=== PATIENT | male | born 1970 | race Caucasian/White ===

== ENCOUNTER 2017-03-14 16:36 | Observation (INO) ==
[2017-03-14] MEDS ORDERED: Naloxone 0.4 MG/ML INJ IVP PRN (22:27)
--- NOTE | 2017-03-14 22:33 | Internal Med History&Physical ---
Date of Encounter: 03/14/17 Time of Encounter: 22:31 Assessment and Plan (1) Chest pain Current visit: Yes Status: Acute trend trop tele TTE nitropaste Qualifiers: Chest pain type: precordial pain Qualified Code(s): R07.2 - Precordial pain (2) RUE weakness Current visit: Yes Status: Acute check MRI brain add ASA on pravastatin at home (3) HTN (hypertension) Current visit: Yes Status: Acute continue ACEI Qualifiers: Hypertension type: essential hypertension Qualified Code(s): I10 - Essential (primary) hypertension (4) HLD (hyperlipidemia) Current visit: Yes Status: Acute statin Qualifiers: Qualified Code(s): E78.5 - Hyperlipidemia, unspecified Internal Medicine - H&P: HPI Chief complaint: Chest pain and RUE numbness/decrease power History of present illness: Mr. Stout is a 46 year old male who presents with Chest pain and RUE numbness/ decrease power. Admitted to r/o CVA and cardiac CP. Hx of HTN, depression, HLD, COPD. Woke up at 3 a.m in the morning with SOB related to CP sternal. When he got up from bed, he felt dizzy. [place] that his heart was racing. 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 Took nitro which helped with the pain and he went back to bed. He woke up later at 930 a.m with worsening symptoms prompting visit to [facility] ED where CT head w/o contrast, CTA head, CTA chest was all without acute findings. On interview, he still has numbness in right arm with some mild decrease strength - there is still deficit but this is improving He smokes 1 ppd Denies CVA or MA in family hx EKG personally reviewed with rate 89, mild repolarization changes with J point changes Past Med Surg Social Fam HX - Past Medical History Medical history: arthritis, asthma, COPD, GERD, hyperlipidemia, hypertension, myocardial infarction Psychiatric history: anxiety, bipolar - Past Surgical History Surgical History: herniorrhaphy, vasectomy - Social History Smoking Status: Light tobacco smoker Packs per day: 1 Smokeless Tobacco Status: No Alcohol use: recent Drug use: none - Family History Mother Living Status: Still Living Hx Family Cardiac Disorders: No Hx Family Respiratory Disorders: No Hx Family Cancer: No Hx Family GI Disorders: No Hx Family Genitourinary Disorders: No Hx Family Endocrine Disorder: No Hx Family Musculoskeletal Disorders: No Hx Family Neuromuscular Disorders: No Hx Family Neurologic Disorders: No Hx Family HEENT Disorders: No Hx Family Autoimmune Disorders: No Hx Family Reproductive Disorders: No Hx Family Psychosocial Disorders: No Hx Family Medical Disorders: No Internal Medicine - H&P: Meds 3 Allergy/AdvReac Type Severity Reaction Status Date / Time brompheniramine Allergy Itching Verified 03/14/17 19:52 [From Dimetapp Cold-Allergy (PE)] phenylephrine Allergy Itching Verified 03/14/17 19:52 [From Dimetapp Cold-Allergy (PE)] All Systems PM: A 10-system review of systems was performed and is negative for pertinent findings except as documented above in the HPI. Review of systems: ROS 14 point review of systems reviewed as best as possible given presentation. Pertinent positive or negative as per HPI or otherwise reviewed as negative - Constitutional Vitals: Temp Pulse Resp BP Pulse Ox 97.4 F L 59 16 143/88 95 03/14/17 18:43 03/14/17 18:43 03/14/17 18:43 03/14/17 18:43 03/14/17 19:45 Exam: General - AAO x 3 Psych - Appropriate affect/speech. No agitation Eyes - RUDDY. Eye lids intact. No scleral icterus Neuro -No CN deficits. RUE with paresthesia and power 4/5 compared to other extremities 5/5 Heart - Sinus. RRR. S1 and S2 present. No added HS/murmurs appreciated. No elevated JVD appreciated. Lung - Adequate air entry b/l, No crackles/wheezes appreciated GI - Soft, non-tender. No hepatosplenomegaly/ascites. BS+ - No CVA/suprapubic tenderness or palpable bladder distension Skin - Intact. No rash/petechiae/ecchymosis. Warm extremities MSK - Joints with normal ROM. No joint swellings
[2017-03-14] MEDS: *HR* Morphine 2 MG/ML SYRINGE IVP PRN (22:59)
[2017-03-14] MEDS: 0.9 % Sodium Chloride 1,000 ML IVC SCH (22:59)
[2017-03-15] MEDS: *HR* Morphine 2 MG/ML SYRINGE IVP PRN (03:47)
[2017-03-15] MEDS ORDERED: *HR* Enoxaparin 100 MG/ML SYRINGE SQ ONE (05:09)
[2017-03-15] MEDS ORDERED: Aspirin 81 MG TAB.CHEW PO SCH ×2 (05:15→09:00)
[2017-03-15 05:16] LABS: Basophils # 0.1 K/mcL (0.0-0.2); Basophils % 1.1 %; Eosinophils # 0.6 K/mcL (0.0-0.6); Eosinophils % 5.7 %; Hematocrit 41.7 % (37.5-50.1); Hemoglobin 13.7 g/dL (12.9-16.9); Immature Granulocytes % 0.6 % (0-4); Lymphocytes # 3.3 K/mcL (0.6-4.6); Lymphocytes % 30.8 %; Mean Corpuscular HGB Conc 32.9 g/dL (31.6-35.5); Mean Corpuscular Hemoglobin 29.3 pg (28.0-33.3); Mean Corpuscular Volume 89.3 fL (83.0-100.0); Mean Platelet Volume 10.6 fL (9.4-12.4); Monocytes # 1.1 K/mcL (0.0-1.3); Monocytes % 10.3 %; Neutrophils # 5.6 K/mcL (1.6-8.9); Platelet Count 276 K/mcL (140-400); Red Blood Count 4.67 M/mcL (4.19-5.50); Segmented Neutrophils % 51.5 %
[2017-03-15] MEDS ORDERED: Aspirin 81 MG TAB.CHEW PO ONE ×2 (05:30)
[2017-03-15 05:36] LABS: Prothrombin Time 11.1 Seconds (9.4-12.1)
[2017-03-15 05:37] LABS: Alanine Aminotransferase 19 Units/L (7-52); Albumin 3.4 g/dL (3.5-5.7); Albumin/Globulin Ratio 1.1 (1.1-2.2); Alkaline Phosphatase 77 Units/L (34-104); Aspartate Amino Transferase 21 Units/L (13-39); BUN/Creatinine Ratio 10 (6-26); Bilirubin,Total 0.7 mg/dL (0.3-1.0); Blood Urea Nitrogen 10 mg/dL (6-20); Calcium 8.3 mg/dL (8.6-10.3); Carbon Dioxide 23 mEq/L (23-29); Chloride 106 mEq/L (98-107); Globulin 3.1 g/dL (2.4-3.5); Glucose 84 mg/dL (70-105); Osmolality,Calculated 278 (280-300); Potassium 4.4 mEq/L (3.5-5.1); Sodium 135 mEq/L (136-145); Total Protein 6.5 g/dL (6.4-8.9); eGFR For African Americans > 60 (> 60); eGFR For Non-African Americans > 60 (> 60)
[2017-03-15 05:38] LABS: Activated Partial Thrombo Time 29.8 Seconds (26.0-36.0)
[2017-03-15] MEDS: Nitroglycerin 1 INCH/GM PACKET TP SCH ×2 (05:55→14:10)
[2017-03-15] MEDS ORDERED: Nicotine 21 MG PATCH.TD24 TD SCH (09:00)
[2017-03-15] MEDS ORDERED: Lisinopril 20 MG TABLET PO SCH (09:00)
[2017-03-15] MEDS: 0.9 % Sodium Chloride 1,000 ML IVC SCH (09:35)
[2017-03-15] MEDS ORDERED: Budesonide/Formoterol 160/4.5 MDI IH SCH (10:00)
--- NOTE | 2017-03-15 11:41 | Neurology - Consult Note ---
Date of Encounter: 03/15/17 Time of Encounter: 11:35 Assessment and Plan (1) RUE weakness Current Visit: Yes Status: Acute This appears to be a chronic condition secondary to previous cervical spinal cord involvement, s/p cervical spinal surgery, during 1995. He relates that the right arm hand already weak. The left hand arm paresthesia could be the result of referring symptoms related to chest pain but since he does have significant cervical spinal cord pathology in the past it would be reasonable to get MRI of cervical spine to assess cervical radiculopathy. If anything significant can be identified then he is to follow up with ortho as an outpatient. Thank you very much for the consultation History of Present Illness Chief complaint: chest pain and left arm pain and paresthesia HPI: Mr. Stout is a 46 year old male with PMH significant for COPD, HTN, hyperlipidemia cervical spinal stenosis history of cervical spine surgery 1995 how developed acute onset of chest pain and left arm paresthesia and pain. 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 Initially evaluated at [facility] clinic and then transferred here for further evaluation. Chest pain already resolved but still has some let arm numbness, he says maybe because he lying on the side. 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 He says that he always has right arm/hand weakness as a result of the spinal cord injury at the time. During he saw a surgeon at [facility] who told him that he will never do surgery on him. the right hand weakness has been chronic. the left arm and hand paresthesia are new. He also has had some left shoulder pain due to injury to his left shoulder. Has had MRI of left shoulder as well. Past Med Surg Social Fam HX - Past Medical History Medical history: arthritis, asthma, COPD, GERD, hyperlipidemia, hypertension, myocardial infarction Psychiatric history: anxiety, bipolar - Past Surgical History Surgical History: herniorrhaphy, vasectomy - Social History Smoking Status: Light tobacco smoker Packs per day: 1 Smokeless Tobacco Status: No Alcohol use: recent Drug use: none - Family History Mother Living Status: Still Living Hx Family Cardiac Disorders: No Hx Family Respiratory Disorders: No Hx Family Cancer: No Hx Family GI Disorders: No Hx Family Genitourinary Disorders: No Hx Family Endocrine Disorder: No Hx Family Musculoskeletal Disorders: No Hx Family Neuromuscular Disorders: No Hx Family Neurologic Disorders: No Hx Family HEENT Disorders: No Hx Family Autoimmune Disorders: No Hx Family Reproductive Disorders: No Hx Family Psychosocial Disorders: No Hx Family Medical Disorders: No Medications and Allergies 3 Allergy/AdvReac Type Severity Reaction Status Date / Time brompheniramine Allergy Itching Verified 03/14/17 19:52 [From Dimetapp Cold-Allergy (PE)] phenylephrine Allergy Itching Verified 03/14/17 19:52 [From Dimetapp Cold-Allergy (PE)] All Systems: A 10-system review of systems was performed and is negative for pertinent findings except as documented above in the HPI. 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: deltoids, biceps, triceps, wrist flexion, wrist extension, hip flexors, tibialis Anterior, quadriceps, toe extension (EHL), plantarflexion Motor examination - left side: 5/5: deltoids, biceps, triceps, wrist flexion, wrist extension, hip flexors, shoe 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, quadriceps, tibialis Anterior, toe extension (EHL), plantarflexion Detailed sensory examination: other (Some reduced pinprick proprioceptive sensation noted to the left hand and arm) Reflexes: Biceps: 2+, Triceps: 2+, Brachioradialis: 2+, Patella: 2+, Achilles: 2 + Mental Status Examination: awake, alert, oriented to person, oriented to place, oriented to time, follows commands appropriately, answers questions appropriately, no agnosia, no aphasia, no aproxia Results - Laboratory Findings CBC and BMP: 03/15/17 03:59 03/15/17 03:59 Abnormal lab findings: Abnormal lab results Sodium 135 mEq/L (136-145) L 03/15/17 03:59 Calculated Osmolality 278 (280-300) L 03/15/17 03:59 Calcium 8.3 mg/dL (8.6-10.3) L 03/15/17 03:59 Albumin 3.4 g/dL (3.5-5.7) L 03/15/17 03:59 - Diagnostic Findings Additional findings: MRI/MR-SHOULDER, LEFT IMPRESSION(s): 1. Moderate acromioclavicular osteoarthritis with mild underlying effacement and subacromial bursitis. 2. Mild rotator cuff tendinopathy. The supraspinatus tendon demonstrates a 3 mm partial articular sided footprint tear with adjacent bone marrow edema which may relate to a tear or possible subtle tensile contusion. 3. S L A P MR/MR head/brain wo con IMPRESSION: Normal MRI of the brain without findings to explain the patient's headaches and altered mental status. D/ / Erich Artis MD / Erich Artis MD Consult Discharge Plan - Plan Referrals: NONE,PCP [Primary Care Provider] -
[2017-03-15] MEDS ORDERED: Acetaminophen 325 MG TABLET PO PRN (14:14)
[2017-03-15 16:35] VITALS: BP 160/80
--- NOTE | 2017-03-15 16:36 | Discharge Summary ---
Date of Encounter: 03/15/17 Time of Encounter: 16:33 - Discharge Diagnosis (1) RUE weakness Priority: Secondary Status: Chronic (2) Chest pain Priority: Secondary Status: Acute Qualifiers: Chest pain type: precordial pain Qualified Code(s): R07.2 - Precordial pain (3) HLD (hyperlipidemia) Priority: Secondary Status: Acute Qualifiers: Hyperlipidemia type: mixed hyperlipidemia Qualified Code(s): E78.2 - Mixed hyperlipidemia (4) HTN (hypertension) Priority: Secondary Status: Acute Qualifiers: Hypertension type: essential hypertension Qualified Code(s): I10 - Essential (primary) hypertension - Discharge Medications Prescriptions: Acetaminophen [Tylenol] 650 mg PO Q6HR PRN #30 tablet PRN Reason: Headache Aspirin Enteric Coated [Aspirin EC] 81 mg PO DAILY #30 tablet. Lisinopril [Zestril] 40 mg PO DAILY #30 tablet Pravastatin Sodium 10 mg PO HS #30 tablet Home Medications: Acetaminophen [Tylenol] 650 mg PO Q6HR PRN #30 tablet 03/15/17 [Rx] Aspirin Enteric Coated [Aspirin EC] 81 mg PO DAILY #30 tablet. 03/15/17 [Rx] Lisinopril [Zestril] 40 mg PO DAILY #30 tablet 03/15/17 [Rx] Pravastatin Sodium 10 mg PO HS #30 tablet 03/15/17 [Rx] Allergies/Adverse Reactions: 3 Allergy/AdvReac Type Severity Reaction Status Date / Time brompheniramine Allergy Itching Verified 03/14/17 19:52 [From Dimetapp Cold-Allergy (PE)] phenylephrine Allergy Itching Verified 03/14/17 19:52 [From Dimetapp Cold-Allergy (PE)] Procedures/tests Complete & Pending: Procedures Performed prior 72 hours Category Date Time Status MR cervical spine wo con [MR] Routine MRI 03/15/17 11:48 Draft MR head/brain wo con [MR] Routine MRI 03/14/17 22:29 Completed EKG [ECG 12 lead ECG] [ECG] AM 0600 Y 03/15/17 06:00 Ordered EV carotid duplex imaging BI Routine Y 03/15/17 08:55 Completed EV echocardiogram Routine Y 03/15/17 22:30 Completed Date of admission: 03/14/17 18:21 Primary care physician: PCP NONE Consults: 03/15/17 08:58 Consult to Neurology [CONS] Routine Consulting Provider: [facility] Reason for Consult: Right hand weakness and numbness Time Notified: 08:58 Call Completed: Yes Discharging clinician: Alise Harrington Anticipated date of discharge: 03/15/17 - Patient Status Disposition: Home, Self-Care Condition: Good Functional capacity at discharge: independent ambulation Overall status at discharge: patient is progressing back to baseline - Discharge Instructions Instructions: Chest Pain (DC) Follow Up With: NONE,PCP [Primary Care Provider] - (Please call [phone] to set up a follow up appointment for 5-7day.) Antonio Goldstein DO [Partnered Physician] - (chest pain (web request made)) Bernarda Patel MD [Partnered Physician] - (Right upper ext paresthesias (web request made)) - Diet and Activity Activity: increase activity as tolerated Diet: low fat, low cholesterol, low salt diet Hospital course: Mr. Stout is a 46 year old male with history of hypertension, hyperlipidemia, COPD who was hospitalized here with complaints of mild right upper extremity weakness and numbness along with some chest discomfort. He was evaluated with a an MRI of the brain which did not show any acute infarct. He was hospitalized for further evaluation and neurology was also consulted. The patient does report chronic history of weakness in his right upper extremity but reports that this has been much worse than his usual episodes of numbness and weakness. Per neurology recommendations, patient underwent MRI of the cervical spine which showed significant degenerative changes at multiple levels. Patient did have an abnormal signal in the C3-C4 vertebral bodies which are most likely degenerative changes. Radiology recommended to rule out osteomyelitis. We checked the patient's CRP and it is normal. He does not have any clinical signs of osteomyelitis at this time. He has 4/5 strength in his right hand. Per neurology recommendations, he is stable to be discharged home from their standpoint and will follow up as outpatient with neurology. For his chest pain he underwent EKG which did not show any acute ST segment changes. Troponins were trended and therefore have been negative so far. A 2- D echocardiogram was also done which did not show any wall motion abnormalities. Patient has a normal EF of 55%. He is stable to be discharged home and can follow up with cardiology as outpatient for possible cardiac stress test. Patient did have mild nonstenotic plaque at right bifurcation and proximal internal carotid arteries. He is advised to take aspirin and statin. He has been on these medications but he has not had any recent refills. He will be provided with prescriptions for this along with his other medications. - Time Spent with Patient Total time spent providing and/or coordinating discharge services: Greater than 30 minutes (40 min) - Constitutional Vitals: Temp Pulse Resp BP Pulse Ox 97.9 F 80 18 131/69 94 03/15/17 10:57 03/15/17 10:57 03/15/17 10:57 03/15/17 10:57 03/15/17 10:57 General appearance: Present: cooperative, A&O X 3, answers questions appropriately - Eye Eye exam: Present: EOMI, PERRL, conjuntiva pink, sclera anicteric - Respiratory Respiratory exam: Present: CTAB. Absent: accessory muscle use, rales, rhonchi, wheezes - Cardiovascular Cardiovascular exam: Present: RRR, +S1, +S2. Absent: diastolic murmur, gallop, rubs, systolic murmur - GI/Abdominal GI/Abdominal exam: Present: normal bowel sounds, soft, no peritoneal signs. Absent: distended, tenderness - Extremities Exam Extremities exam: Present: warm, radial pulses palpable and symmetrical. Absent : calf tenderness, cyanotic, pedal edema - Neurological Exam Neurological exam: Present: alert, oriented X3, no focal deficits. 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
[2017-03-16] MEDS ORDERED: Aspirin 81 MG TAB.CHEW PO SCH (09:00)
--- NOTE | 2017-03-17 15:25 | Electrocardiograph Report ---
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
== END 2017-03-15 18:15 | disposition home or self-care (01) ==
LOC: 3BNU → SUATTDRO 18:21
PROVIDERS: ADMIT Internal Medicine; ATTEND Internal Medicine

== ENCOUNTER 2019-05-16 14:48 | Inpatient (IN) ==
[2019-05-16 15:59] LABS: White Blood Count 10.5 K/mcL (4.3-11.1)
[2019-05-16 16:00] LABS: Basophils # 0.1 K/mcL (0.0-0.2); Basophils % 1.1 %; Eosinophils # 0.5 K/mcL (0.0-0.6); Eosinophils % 4.4 %; Hematocrit 38.3 % (37.5-50.1); Hemoglobin 12.4 g/dL (12.9-16.9); Immature Granulocytes % 0.9 % (0-4); Lymphocytes # 2.4 K/mcL (0.6-4.6); Lymphocytes % 23.2 %; Mean Corpuscular HGB Conc 32.4 g/dL (31.6-35.5); Mean Corpuscular Hemoglobin 28.6 pg (28.0-33.3); Mean Corpuscular Volume 88.2 fL (83.0-100.0); Mean Platelet Volume 9.6 fL (9.4-12.4); Monocytes # 1.2 K/mcL (0.0-1.3); Monocytes % 11.5 %; Neutrophils # 6.2 K/mcL (1.6-8.9); Platelet Count 299 K/mcL (140-400); Red Blood Count 4.34 M/mcL (4.19-5.50); Red Cell Distribution Width 14.5 % (11.5-14.5); Segmented Neutrophils % 58.9 %
[2019-05-16 16:21] LABS: Alanine Aminotransferase 21 Units/L (7-52); Albumin/Globulin Ratio 1.4 (1.1-2.2); Alkaline Phosphatase 74 Units/L (34-104); Aspartate Amino Transferase 18 Units/L (13-39); BUN/Creatinine Ratio 19 (6-26); Bilirubin,Total 0.3 mg/dL (0.3-1.0); Blood Urea Nitrogen 29 mg/dL (6-20); Carbon Dioxide 28 mEq/L (23-29); Chloride 99 mEq/L (98-107); Globulin 2.9 g/dL (2.4-3.5); Glucose 95 mg/dL (70-105); Osmolality,Calculated 282 (280-300); Potassium 4.7 mEq/L (3.5-5.1); Sodium 133 mEq/L (136-145); Total Protein 6.9 g/dL (6.4-8.9); Troponin I < 0.03 ng/mL (< 0.04); eGFR For African Americans 59 (> 60); eGFR For Non-African Americans 49 (> 60)
[2019-05-16] MEDS ORDERED: Furosemide 40 MG in 0.9 % Sodium Chloride 50 ML IV ONE (17:27)
[2019-05-16] MEDS ORDERED: Furosemide 40 MG/4 ML VIAL IVP ONE ×2 (17:30→18:15)
[2019-05-16] MEDS ORDERED: Naloxone 0.4 MG/ML INJ IVP PRN (18:18)
[2019-05-16] MEDS ORDERED: Levalbuterol Neb 1.25 MG/3 ML IH PRN (18:20)
[2019-05-16] MEDS: Furosemide 40 MG/4 ML VIAL IVP SCH (19:50)
[2019-05-16] MEDS: Gabapentin 300 MG CAPSULE PO SCH (19:51)
[2019-05-16] MEDS: Budesonide/Formoterol 160/4.5 1 PUFF INH IH SCH (21:46)
[2019-05-17] MEDS: *HR* Heparin 5,000 UNIT/ML VIAL SQ SCH ×2 (05:29→17:39)
[2019-05-17 06:05] LABS: Basophils # 0.1 K/mcL (0.0-0.2); Eosinophils # 0.4 K/mcL (0.0-0.6); Hematocrit 36.9 % (37.5-50.1); Hemoglobin 11.9 g/dL (12.9-16.9); Immature Granulocytes % 0.8 % (0-4); Lymphocytes # 2.3 K/mcL (0.6-4.6); Lymphocytes % 21.3 %; Mean Corpuscular HGB Conc 32.2 g/dL (31.6-35.5); Mean Corpuscular Hemoglobin 28.4 pg (28.0-33.3); Mean Corpuscular Volume 88.1 fL (83.0-100.0); Mean Platelet Volume 9.9 fL (9.4-12.4); Monocytes # 1.2 K/mcL (0.0-1.3); Monocytes % 11.4 %; Neutrophils # 6.5 K/mcL (1.6-8.9); Platelet Count 290 K/mcL (140-400); Red Blood Count 4.19 M/mcL (4.19-5.50); Red Cell Distribution Width 14.6 % (11.5-14.5); Segmented Neutrophils % 61.5 %; White Blood Count 10.6 K/mcL (4.3-11.1)
[2019-05-17 06:29] LABS: Calcium 9.1 mg/dL (8.6-10.3); Potassium 4.7 mEq/L (3.5-5.1)
[2019-05-17] MEDS: Budesonide/Formoterol 160/4.5 1 PUFF INH IH SCH ×2 (07:43→19:55)
[2019-05-17] MEDS: Gabapentin 300 MG CAPSULE PO SCH ×3 (09:47→20:10)
[2019-05-17] MEDS: Furosemide 40 MG/4 ML VIAL IVP SCH ×2 (09:47→20:10)
[2019-05-17] MEDS: Aspirin Enteric Coated 81 MG Tablet PO SCH (09:47)
[2019-05-17 17:39] LABS: Bilirubin,Urine Negative (Negative); Blood,Urine Negative (Negative); Clarity,Urine Clear (Clear); Color,Urine Yellow (Yellow); Glucose,Urine (UA) Normal (Normal); Ketones,Urine Negative (Negative); Leukocyte Esterase,Urine Negative (Negative); Nitrite,Urine Negative (Negative); Protein,Urine Negative (Neg-Trace); Specific Gravity,Urine 1.018 (1.010-1.025); Urobilinogen,Urine Normal (Normal)
[2019-05-17] MEDS: Albumin 25% 25gram/100mL 25 GM/100 ML IV.SOLN IVPB SCH (17:39)
[2019-05-17] MEDS: Metoprolol XL (24 HR) Succ 25 MG TAB.ER.24H PO SCH (17:39)
[2019-05-18] MEDS: Albumin 25% 25gram/100mL 25 GM/100 ML IV.SOLN IVPB SCH ×2 (06:04→17:48)
[2019-05-18] MEDS: *HR* Heparin 5,000 UNIT/ML VIAL SQ SCH ×2 (06:08→17:49)
[2019-05-18 06:19] LABS: Basophils # 0.1 K/mcL (0.0-0.2); Eosinophils # 0.4 K/mcL (0.0-0.6); Eosinophils % 3.6 %; Hematocrit 38.5 % (37.5-50.1); Hemoglobin 12.3 g/dL (12.9-16.9); Immature Granulocytes % 0.7 % (0-4); Lymphocytes # 2.4 K/mcL (0.6-4.6); Lymphocytes % 20.5 %; Mean Corpuscular HGB Conc 31.9 g/dL (31.6-35.5); Mean Corpuscular Hemoglobin 27.9 pg (28.0-33.3); Mean Corpuscular Volume 87.3 fL (83.0-100.0); Mean Platelet Volume 9.9 fL (9.4-12.4); Monocytes # 1.3 K/mcL (0.0-1.3); Monocytes % 11.1 %; Neutrophils # 7.3 K/mcL (1.6-8.9); Platelet Count 294 K/mcL (140-400); Red Blood Count 4.41 M/mcL (4.19-5.50); Red Cell Distribution Width 14.3 % (11.5-14.5); Segmented Neutrophils % 63.1 %; White Blood Count 11.6 K/mcL (4.3-11.1)
[2019-05-18 06:38] LABS: Calcium 9.4 mg/dL (8.6-10.3); Potassium 4.7 mEq/L (3.5-5.1)
[2019-05-18] MEDS: Budesonide/Formoterol 160/4.5 1 PUFF INH IH SCH ×2 (07:49→20:31)
[2019-05-18] MEDS: Metoprolol XL (24 HR) Succ 25 MG TAB.ER.24H PO SCH (07:53)
[2019-05-18] MEDS: Gabapentin 300 MG CAPSULE PO SCH ×3 (07:53→20:23)
[2019-05-18] MEDS: Aspirin Enteric Coated 81 MG Tablet PO SCH (07:53)
[2019-05-18] MEDS: Furosemide 40 MG/4 ML VIAL IVP SCH (07:54)
[2019-05-18] MEDS: Furosemide 20 MG/2 ML VIAL IVP SCH (20:23)
[2019-05-19] MEDS: Albumin 25% 25gram/100mL 25 GM/100 ML IV.SOLN IVPB SCH (05:21)
[2019-05-19] MEDS: *HR* Heparin 5,000 UNIT/ML VIAL SQ SCH (05:22)
[2019-05-19 05:43] LABS: Basophils # 0.1 K/mcL (0.0-0.2); Basophils % 1.2 %; Eosinophils # 0.4 K/mcL (0.0-0.6); Eosinophils % 4.2 %; Hematocrit 35.5 % (37.5-50.1); Hemoglobin 11.7 g/dL (12.9-16.9); Immature Granulocytes % 0.5 % (0-4); Lymphocytes # 2.3 K/mcL (0.6-4.6); Lymphocytes % 21.9 %; Mean Corpuscular Hemoglobin 28.7 pg (28.0-33.3); Mean Corpuscular Volume 87.2 fL (83.0-100.0); Mean Platelet Volume 9.8 fL (9.4-12.4); Monocytes # 1.1 K/mcL (0.0-1.3); Neutrophils # 6.3 K/mcL (1.6-8.9); Platelet Count 258 K/mcL (140-400); Red Blood Count 4.07 M/mcL (4.19-5.50); Red Cell Distribution Width 14.2 % (11.5-14.5); Segmented Neutrophils % 61.2 %; White Blood Count 10.3 K/mcL (4.3-11.1)
[2019-05-19 06:01] LABS: Calcium 9.4 mg/dL (8.6-10.3); Potassium 4.4 mEq/L (3.5-5.1)
[2019-05-19 06:52] VITALS: BP 108/63
[2019-05-19] MEDS: Budesonide/Formoterol 160/4.5 1 PUFF INH IH SCH (07:26)
[2019-05-19] MEDS: Gabapentin 300 MG CAPSULE PO SCH (09:18)
[2019-05-19] MEDS: Metoprolol XL (24 HR) Succ 25 MG TAB.ER.24H PO SCH (09:19)
[2019-05-19] MEDS: Aspirin Enteric Coated 81 MG Tablet PO SCH (09:19)
[2019-05-19] MEDS: Furosemide 20 MG/2 ML VIAL IVP SCH (09:19)
== END 2019-05-19 10:58 | disposition home or self-care (01) | DRG 291 ==
LOC: 3BNU 14:48 → EMEROOARM 14:48 → SUATTDRO 18:03 → 3BNU 18:57
PROVIDERS: ADMIT Internal Medicine; ATTEND Internal Medicine